=== PATIENT | male | born 1980 | race Caucasian/White ===

== ENCOUNTER 2018-05-02 07:48 | Emergency (ER) | payer BC ==
[2018-05-02 07:52] VITALS: BP 107/73; PULSE 65; TEMP 98; BMI 19.6
[2018-05-02] MEDS ORDERED: Povidone Iodine Oint 10% Foilpak UD ONE (08:06)
--- NOTE | 2018-05-02 08:06 | ED PDOC ---
HPI: Headache Time Seen by Provider: 05/02/18 07:56 Chief Complaint (Nursing): Trauma Chief Complaint (Provider): Head injury History Per: Patient History/Exam Limitations: no limitations Onset/Duration Of Symptoms: Days (today) Current Symptoms Are (Timing): Still Present Additional Complaint(s): Pt. was jogging and accidentally fell and landed on his right head and buttox. No LOC. No dizziness, neck apin, arm, leg, chest, abd pain. Called ambulance and brought to the ER as he was bleeding. Pt. has no vision issues. No numbness, tingles. Was able to get up and walk around after. Past Medical History Reviewed: Nursing Documentation, Vital Signs Vital Signs: Last Vital Signs Temp 98 F 05/02/18 07:51 Pulse 65 05/02/18 07:51 Resp BP 107/73 05/02/18 07:51 Pulse Ox 97 05/02/18 07:51 - Medical History PMH: No Chronic Diseases - Surgical History Surgical History: No Surg Hx - Family History Family History: States: Unknown Family Hx - Living Arrangements Living Arrangements: With Family - Immunization History Hx Tetanus Toxoid Vaccination: Yes - Allergies Allergies/Adverse Reactions: Allergies Allergy/AdvReac Type Severity Reaction Status Date / Time No Known Allergies Allergy Verified 05/02/18 08:02 Review of Systems ROS Statement: Except As Marked, All Systems Reviewed And Found Negative Neurological: Positive for: Headache Physical Exam - Reviewed Nursing Documentation Reviewed: Yes Vital Signs Reviewed: Yes - Physical Exam Appears: Positive for: Non-toxic, No Acute Distress Head Exam: Positive for: NORMOCEPHALIC. Negative for: ATRAUMATIC (R frontal scalp with 5cm laceration linear; no gross foreign body) Skin: Positive for: Normal Color, Warm, DRY Eye Exam: Positive for: EOMI, Normal appearance, PERRL ENT: Positive for: Normal ENT Inspection, Other (no septal hematoma). Negative for: Nasal Congestion Neck: Positive for: Normal, Painless ROM Cardiovascular/Chest: Positive for: Regular Rate, Rhythm, Chest Non Tender. Negative for: Edema Respiratory: Positive for: CNT, Normal Breath Sounds Gastrointestinal/Abdominal: Positive for: Normal Exam, Soft. Negative for: Tenderness Back: Positive for: Other (R buttox lateral with abrasisons in 5cm diameter with no tenderness). Negative for: L CVA Tenderness, R CVA Tenderness Extremity: Positive for: Normal ROM, Other (L medial antecub with 1cm abrasions , nontender; R medial wrist distal with 1cm abrasion, nontender). Negative for : Tenderness (no tenderness to abrasions or extremities; has full ROM and resistance) Neurologic/Psych: Positive for: Alert, juvenile counselor II-XII, Oriented. Negative for: Motor/Sensory Deficits, Aphasia, Facial Droop - ECG O2 Sat by Pulse Oximetry: 97 Pulse Ox Interpretation: Normal - Progress ED Course And Treament: 953: Stable. AAOx3. Pain free. Tolerated PO. Ambulated with no issues. Disposition - Clinical Impression Clinical Impression: Head injury, Laceration - Patient ED Disposition Is Patient to be Admitted: No Counseled Patient/Family Regarding: Studies Performed, Diagnosis, Need For Followup - Disposition Referrals: [facility] [Outside] - 05/06/18 Disposition Time: 09:54 Condition: STABLE Additional Instructions: Return if not better in 3 days. Come back or go to your doctor for suture removal in 7 days. Instructions: Head Injury Observation (DC), Laceration Repair Forms: [email or web address] (Khmer)
--- NOTE | 2018-05-02 09:04 | CT ---
Date of service: 05/02/2018 PROCEDURE: CT HEAD WITHOUT CONTRAST. HISTORY: Headache COMPARISON: None available. TECHNIQUE: Axial computed tomography images were obtained through the head/brain without intravenous contrast. Radiation dose: Total exam DLP = 838.44 mGy-cm. This CT exam was performed using one or more of the following dose reduction techniques: Automated exposure control, adjustment of the mA and/or kV according to patient size, and/or use of iterative reconstruction technique. FINDINGS: HEMORRHAGE: No intracranial hemorrhage. BRAIN: Oneil-white matter differentiation is preserved. There is no mass, mass effect or abnormal extra-axial fluid collection. There is no territorial infarction. The midline sagittal structures are normal. VENTRICLES: The ventricles are normal in size, shape and configuration. CALVARIUM: The skull base and calvarium are normal. PARANASAL SINUSES: Predominantly clear. MASTOID AIR CELLS: Predominantly clear. OTHER FINDINGS: None. IMPRESSION: No acute intracranial abnormality.
[2018-05-02] MEDS ORDERED: LIDOCAINE 2% 10ML 20 MG/ML VIAL IJ STA (09:38)
[2018-05-02] MEDS ORDERED: Lidocaine PF 2% (5 ml) Inj (For Cardiac Arrhy) ONE (09:39)
[2018-05-02 10:42] VITALS: RESP 18; O2SAT 99
== END 2018-05-02 10:42 | disposition home or self-care (01) ==
LOC: H.ER 07:48
DX: S09.90XA Unspecified injury of head, initial encounter (principal); S01.01XA Laceration without foreign body of scalp, initial encounter; W19.XXXA Unspecified fall, initial encounter; Y92.89 Other specified places as the place of occurrence of the external cause